=== PATIENT | male | born 2000 | race Caucasian/White ===

== ENCOUNTER 2019-04-28 17:14 | Emergency (ER) | payer BC, OTHER ==
[2019-04-28] MEDS ORDERED: SODIUM CHLORIDE 0.9% 1,000 ML IV STA (18:42)
[2019-04-28] MEDS ORDERED: ONDANSETRON 4 MG/2 ML VIAL IVP STA (18:42)
--- NOTE | 2019-04-28 20:16 | ED ---
General Adult HPI - General Chief complaint: Fever Stated complaint: Fever, vomiting, MARCUS Time Seen by Provider: 04/28/19 18:41 Source: patient Mode of arrival: ambulatory Limitations: no limitations - History of Present Illness Initial comments: Dictation was produced using [employer] dictation software. please excuse any grammatical, word or spelling errors. Chief Complaint: 18-year-old male presents with cough, congestion, left lower q uadrant abdominal pain, nausea and vomiting. History of Present Illness: Is a 18-year-old male he states that over the last week or so he's been having worsening cough, congestion and vomiting. Patient states his emesis is clear. Nonbilious nonbloody. Today he developed left lower quadrant abdominal pain that is significantly whenever he vomits. Patient also has posttussive emesis. He has been around people who have had similar symptoms. He is concerned that perhaps maybe he has the flu. Denies any sore throat. He does have nasal congestion and cough. The ROS documented in this emergency department record has been reviewed and confirmed by me. Those systems with pertinent positive or negative responses have been documented in the HPI. All other systems are other negative and/or noncontributory. PHYSICAL EXAM: General Impression: Alert and oriented x3, not in acute distress HEENT: Normocephalic atraumatic, extra-ocular movements intact, pupils equal and reactive to light bilaterally, mucous membranes moist. Cardiovascular: Heart regular rate and rhythm, S1&S2 audible, no murmurs, rubs or gallops Chest: Lungs clear to auscultation bilaterally, no rhonchi, no wheeze, no rales Abdomen: Tenderness to palpation of the left lower quadrant Musculoskeletal: Pulses present and equal in all extremities, no peripheral edema Motor: no focal deficits noted Neurological: CN II-XII grossly intact, no focal motor or sensory deficits noted Skin: Intact with no visualized rashes Psych: Normal affect and mood ED course: 18-year-old male presents with URI-type symptoms along with left lower quadrant abdominal pain. Vital signs upon arrival are within acceptable limits. Laboratory evaluation obtained. CBC, metabolic panel is unremarkable. Urinalysis negative. Influenza B is positive. Given that patient had fever and abdominal symptoms CT abdomen and pelvis is obtained showing no acute processes. Urinalysis is negative. Chest x-ray shows no acute processes. His symptoms likely secondary to influenza B. Patient observed in the emergency department for several hours. He is in stable medical condition is mildly. Patient had a candidate for Tamiflu given that his symptoms have been longer than 72 hours. Advised follow up with his primary care physician. He has a appointment tomorrow. Patient be discharged. As discussed. Told to seek medical attention if he has any worsening symptoms especially worsening shortness of breath. - Related Data Home Medications Medication Instructions Recorded Confirmed Albuterol Inhaler [Ventolin Hfa 2 puff INHALATION DIRECTED PRN 06/26/14 06/26/14 Inhaler] Previous Rx's Medication Instructions Recorded predniSONE [Deltasone] 40 mg PO DAILY #6 tab 06/26/14 Allergies Allergy/AdvReac Type Severity Reaction Status Date / Time No Known Allergies Allergy Verified 04/28/19 17:27 Review of Systems ROS Statement: Those systems with pertinent positive or pertinent negative responses have been documented in the HPI. ROS Other: All systems not noted in ROS Statement are negative. Past Medical History Past Medical History: Asthma History of Any Multi-Drug Resistant Organisms: None Reported Past Surgical History: No Surgical Hx Reported Past Psychological History: No Psychological Hx Reported Smoking Status: Never smoker Past Alcohol Use History: None Reported Past Drug Use History: None Reported General Exam Limitations: no limitations Course Vital Signs 04/28/19 04/28/19 04/28/19 17:24 20:14 21:00 Temperature 97.9 F 98.2 F 98.2 F Pulse Rate 70 54 L 78 Respiratory 18 18 20 Rate Blood Pressure 114/69 108/82 108/82 O2 Sat by Pulse 99 98 98 Oximetry 04/28/19 22:00 Temperature 98.2 F Pulse Rate 76 Respiratory 18 Rate Blood Pressure 112/76 O2 Sat by Pulse 98 Oximetry Medical Decision Making - Lab Data Result diagrams: 04/28/19 18:57 04/28/19 18:57 Lab Results 04/28/19 04/28/19 04/28/19 Range/Units 18:57 18:57 18:57 WBC 6.9 (4.0-11.0) k/uL RBC 5.07 (4.30-5.90) m/uL Hgb 15.5 (13.0-17.5) gm/dL Hct 44.3 (39.0-53.0) % MCV 87.3 (80.0-100.0) fL MCH 30.6 (25.0-35.0) pg MCHC 35.0 (31.0-37.0) g/dL RDW 11.3 L (11.5-15.5) % Plt Count 243 (150-450) k/uL Neutrophils % 65 % Lymphocytes % 22 % Monocytes % 7 % Eosinophils % 2 % Basophils % 2 % Neutrophils # 4.5 (1.3-7.7) k/uL Lymphocytes # 1.5 (1.0-4.8) k/uL Monocytes # 0.5 (0-1.0) k/uL Eosinophils # 0.1 (0-0.7) k/uL Basophils # 0.2 (0-0.2) k/uL Hyperchromasia Slight Sodium 142 (137-145) mmol/L Potassium 4.5 (3.5-5.1) mmol/L Chloride 104 (98-107) mmol/L Carbon Dioxide 29 (22-30) mmol/L Anion Gap 9 mmol/L BUN 11 (9-20) mg/dL Creatinine 0.64 L (0.66-1.25) mg/dL Est GFR (CKD-EPI)AfAm >90 (>60 ml/min/1.73 sqM) Est GFR (CKD-EPI)NonAf >90 (>60 ml/min/1.73 sqM) Glucose 92 (74-99) mg/dL Calcium 9.7 (8.4-10.2) mg/dL Magnesium 1.9 (1.6-2.3) mg/dL Total Bilirubin 0.7 (0.2-1.3) mg/dL AST 30 (17-59) U/L ALT 21 (4-49) U/L Alkaline Phosphatase 60 (38-126) U/L Total Protein 7.5 (6.3-8.2) g/dL Albumin 4.7 (3.5-5.0) g/dL Lipase 49 (23-300) U/L Urine Color Urine Appearance (Clear) Urine pH (5.0-8.0) Ur Specific [place] (1.001-1.035) Urine Protein (Negative) Urine Glucose (UA) (Negative) Urine Ketones (Negative) Urine Blood (Negative) Urine Nitrite (Negative) Urine Bilirubin (Negative) Urine Urobilinogen (<2.0) mg/dL Ur Leukocyte Esterase (Negative) Influenza Type A RNA Not Detected (Not Detectd) Influenza Type B (PCR) Detected H (Not Detectd) 04/28/19 Range/Units 23:30 WBC (4.0-11.0) k/uL RBC (4.30-5.90) m/uL Hgb (13.0-17.5) gm/dL Hct (39.0-53.0) % MCV (80.0-100.0) fL MCH (25.0-35.0) pg MCHC (31.0-37.0) g/dL RDW (11.5-15.5) % Plt Count (150-450) k/uL Neutrophils % % Lymphocytes % % Monocytes % % Eosinophils % % Basophils % % Neutrophils # (1.3-7.7) k/uL Lymphocytes # (1.0-4.8) k/uL Monocytes # (0-1.0) k/uL Eosinophils # (0-0.7) k/uL Basophils # (0-0.2) k/uL Hyperchromasia Sodium (137-145) mmol/L Potassium (3.5-5.1) mmol/L Chloride (98-107) mmol/L Carbon Dioxide (22-30) mmol/L Anion Gap mmol/L BUN (9-20) mg/dL Creatinine (0.66-1.25) mg/dL Est GFR (CKD-EPI)AfAm (>60 ml/min/1.73 sqM) Est GFR (CKD-EPI)NonAf (>60 ml/min/1.73 sqM) Glucose (74-99) mg/dL Calcium (8.4-10.2) mg/dL Magnesium (1.6-2.3) mg/dL Total Bilirubin (0.2-1.3) mg/dL AST (17-59) U/L ALT (4-49) U/L Alkaline Phosphatase (38-126) U/L Total Protein (6.3-8.2) g/dL Albumin (3.5-5.0) g/dL Lipase (23-300) U/L Urine Color Yellow Urine Appearance Clear (Clear) Urine pH 6.5 (5.0-8.0) Ur Specific [place] >1.050 H (1.001-1.035) Urine Protein Trace H (Negative) Urine Glucose (UA) Negative (Negative) Urine Ketones Negative (Negative) Urine Blood Negative (Negative) Urine Nitrite Negative (Negative) Urine Bilirubin Negative (Negative) Urine Urobilinogen <2.0 (<2.0) mg/dL Ur Leukocyte Esterase Negative (Negative) Influenza Type A RNA (Not Detectd) Influenza Type B (PCR) (Not Detectd) Disposition Clinical Impression: Influenza Disposition: HOME SELF-CARE Condition: Good Instructions (If sedation given, give patient instructions): Influenza (ED) Is patient prescribed a controlled substance at d/c from ED?: No Referrals: Quan Trevino DO [Primary Care Provider] - 1-2 days Time of Disposition: 00:15
[2019-04-28 20:19] VITALS: TEMP 98.2
[2019-04-28 20:46] LABS: Basophils # (A) 0.2 k/uL (0-0.2); Basophils % (A) 2 %; Eosinophils # (A) 0.1 k/uL (0-0.7); Eosinophils % (A) 2 %; HCT 44.3 % (39.0-53.0); HGB 15.5 gm/dL (13.0-17.5); Hyperchromasia Slight; Lymphocytes # (A) 1.5 k/uL (1.0-4.8); Lymphocytes % (A) 22 %; MCH 30.6 pg (25.0-35.0); MCV 87.3 fL (80.0-100.0); Mean Platelet Volume 7.9; Monocytes # (A) 0.5 k/uL (0-1.0); Monocytes % (A) 7 %; Neutrophils # (A) 4.5 k/uL (1.3-7.7); Neutrophils % (A) 65 %; Platelet Count 243 k/uL (150-450); RBC 5.07 m/uL (4.30-5.90); RDW 11.3 % (11.5-15.5); WBC 6.9 k/uL (4.0-11.0)
[2019-04-28 20:52] LABS: ALT 21 U/L (4-49); AST 30 U/L (17-59); African American GFR (CKD) >90 (>60 ml/min/1.73 sqM); Albumin 4.7 g/dL (3.5-5.0); Alkaline Phosphatase 60 U/L (38-126); Anion Gap 9 mmol/L; Blood Urea Nitrogen 11 mg/dL (9-20); Calcium 9.7 mg/dL (8.4-10.2); Carbon Dioxide 29 mmol/L (22-30); Chloride 104 mmol/L (98-107); Glucose 92 mg/dL (74-99); Magnesium 1.9 mg/dL (1.6-2.3); Non-African American GFR(CKD) >90 (>60 ml/min/1.73 sqM); Potassium 4.5 mmol/L (3.5-5.1); Sodium 142 mmol/L (137-145); Total Bilirubin 0.7 mg/dL (0.2-1.3); Total Protein 7.5 g/dL (6.3-8.2)
--- NOTE | 2019-04-28 21:46 | XR ---
EXAMINATION TYPE: XR chest 2V DATE OF EXAM: 04/28/2019 COMPARISON: NONE HISTORY: Cough and congestion TECHNIQUE: 2 views FINDINGS: Heart and mediastinum are normal. Lungs are clear. Diaphragm is normal. Bony thorax appears normal. IMPRESSION: Normal chest
--- NOTE | 2019-04-28 22:16 | CT ---
EXAMINATION TYPE: CT abdomen pelvis w con DATE OF EXAM: 04/28/2019 COMPARISON: None HISTORY: RLQ pain, +flu. CT DLP: 714.8 mGycm Automated exposure control for dose reduction was used. CONTRAST: Performed with IV Contrast, patient injected with 100 mL of Isovue 300. Multiple axial sections were obtained from the diaphragm to the floor the pelvis with intravenous con trast. Lung bases are clear. There is no pleural effusion. Heart is normal. There is no pericardial effusion . Liver appears normal. The bile ducts are not dilated. Spleen is enlarged and measures 15 cm. Stomach pancreas gallbladder appear normal. There is no adrenal mass. Kidneys show satisfactory contrast opacification. There is no hydronephrosi s. Ureters are not dilated. There is no retroperitoneal adenopathy. Bladder distends smoothly. There is no inguinal hernia. There is no free fluid in the pelvis. Appendix is posterior and appears normal . Appendix partly filled with air. There is no ascites or free air. There is no sign of a bowel obstruction. There is no mesenteric johnathan a. Lumbar spine is intact. Bony pelvis is intact. There is no sign of hip dysplasia. IMPRESSION: Negative CT scan of the abdomen pelvis. Normal appendix.
[2019-04-28 23:46] VITALS: BP 112/76; PULSE 76; RESP 18
[2019-04-28 23:53] LABS: Appearance,Urine Clear (Clear); Bilirubin,Urine Negative (Negative); Blood,Urine Negative (Negative); Color,Urine Yellow; Glucose,Urine (UA) Negative (Negative); Ketones,Urine Negative (Negative); Leukocyte Esterase,Urine Negative (Negative); Nitrite,Urine Negative (Negative); PH, Urine 6.5 (5.0-8.0); Protein,Urine Trace (Negative); Urobilinogen,Urine <2.0 mg/dL (<2.0)
[2019-04-28 23:59] LABS: Specific Gravity,Urine >1.050 (1.001-1.035)
== END 2019-04-29 00:31 | disposition home or self-care (01) ==
LOC: EC 17:14
DX: J10.1 Influenza due to other identified influenza virus with other respiratory manifestations (principal); R10.32 Left lower quadrant pain; R11.2 Nausea with vomiting, unspecified; J45.909 Unspecified asthma, uncomplicated; Z79.899 Other long term (current) drug therapy
CPT/HCPCS: 99284; 96374; 96361; 36415; 80053; 83690; 83735; 85025; 81003; 87502; 71046; 74177; J2405; Q9967